=== PATIENT | male | born 1960 | race Caucasian/White ===

== ENCOUNTER 2020-05-24 08:09 | Outpatient (CLI) | payer MEDICARE ==
[~2020-05-24] VITALS: Ht 182.9 cm; Wt 122.0 kg
[~2020-05-24 08:09] MED LIST: ATOR40TA PO; CHOL20004 PO; CYAN500T64 PO; DILT-36 PO; FLUO-12 PO; LEVO50TA PO; LOSA25TA96 PO; WARF3TAB56 PO
[2020-05-24] MEDS ORDERED: aminophylline 250mg/10ml inj. IV PRN (09:15)
[2020-05-24] MEDS ORDERED: regadenoson 0.4mg/5ml syringe IV PRN (09:15)
[2020-05-24] MEDS ORDERED: nitroGLYCERIN 0.4mg SUBLingual tab SL PRN (09:15)
[2020-05-24 10:42] VITALS: BP 173/85
[2020-05-24 10:59] VITALS: BP 161/75
[2020-05-24 11:00] VITALS: BP 143/74
[2020-05-24 11:01] VITALS: BP 148/71
[2020-05-24 11:02] VITALS: BP 147/62
[2020-05-24 11:03] VITALS: BP 146/75
== END 2020-05-24 23:59 | disposition home or self-care (01) ==
LOC: RAD 08:09
PROVIDERS: ATTEND Internal Medicine Cardiovascular Disease
DX: Z01.810 Encounter for preprocedural cardiovascular examination (principal); I48.91 Unspecified atrial fibrillation; Z40.9 Encounter for prophylactic surgery, unspecified
CPT/HCPCS: 78452; 93017; A9500; J2785